=== PATIENT | female | born 1955 | race Caucasian/White ===

== ENCOUNTER → 2017-06-03 | Outpatient (CLI) | payer OTHER ==
--- NOTE | 2017-06-05 06:53 | MM ---
Reason for exam: screening (asymptomatic). Last mammogram was performed 3 years and 5 months ago. History: Patient is postmenopausal. Physical Findings: A clinical breast exam by your physician is recommended on an annual basis and results should be correlated with mammographic findings. MG 3D Screening Mammo W/Cad Bilateral CC and MLO view(s) were taken. Prior study comparison: December 29, 2013, bilateral MG screening mammo w CAD. January 16, 2011, bilateral digital screening mammo w/CAD. The breast tissue is extremely dense which could obscure a lesion on mammography. Stable benign calcifications. There is chronic nodularity bilaterally. There is no dominant lesion. No significant changes when compared with prior studies. ASSESSMENT: Benign, BI-RAD 2 RECOMMENDATION: Routine screening mammogram of both breasts in 1 year.
== END | disposition home or self-care (01) ==
LOC: RADMAMWWP 09:58
PROVIDERS: ATTEND Obstetrics & Gynecology
DX: Z12.31 Encounter for screening mammogram for malignant neoplasm of breast (principal)
CPT/HCPCS: 77063; 77067

== ENCOUNTER → 2021-03-21 | Outpatient (CLI) | payer OTHER ==
--- NOTE | 2021-03-22 15:03 | MM ---
Reason for exam: screening (asymptomatic). Last mammogram was performed 3 years and 10 months ago. History: Patient is postmenopausal. Physical Findings: A clinical breast exam by your physician is recommended on an annual basis and results should be correlated with mammographic findings. MG 3D Screening Mammo W/Cad Bilateral CC and MLO view(s) were taken. Prior study comparison: June 03, 2017, bilateral MG 3d screening mammo w/cad. December 29, 2013, bilateral MG screening mammo w CAD. The breast tissue is heterogeneously dense. This may lower the sensitivity of mammography. Benign appearing bilateral calcifications. No significant changes when compared with prior studies. ASSESSMENT: Benign, BI-RAD 2 RECOMMENDATION: Routine screening mammogram of both breasts in 1 year.
== END | disposition home or self-care (01) ==
LOC: RADMAMWWP 11:04
PROVIDERS: ATTEND Obstetrics & Gynecology
DX: Z12.31 Encounter for screening mammogram for malignant neoplasm of breast (principal); Z78.0 Asymptomatic menopausal state
CPT/HCPCS: 77063; 77067

== ENCOUNTER → 2023-03-26 | Outpatient (CLI) | payer MEDICARE ==
--- NOTE | 2023-03-30 06:34 | MM ---
Reason for Exam: Screening (asymptomatic). Last mammogram was performed 2 year(s) and 0 month(s) ago. Patient History: Menarche at age 14. First Full-Term at age 23. Postmenopausal. Risk Values: Bri 5 year model risk: 1.5%. NCI Lifetime model risk: 5.4%. Prior Study Comparison: 12/29/2013 Bilateral Screening Mammogram, [facility]. 06/03/2017 Bilateral Screening Mammogram, [facility]. 03/21/2021 Bilateral Screening Mammogram, [facility]. Tissue Density: The breast tissue is heterogeneously dense. This may lower the sensitivity of mammography. Findings: Analyzed By CAD. There is no suspicious group of microcalcifications or new suspicious mass in either breast. Overall Assessment: Negative, BI-RAD 1 Management: Screening Mammogram of both breasts in 1 year. . Patient should continue monthly self-breast exams. A clinical breast exam by your physician is recommended on an annual basis. This exam should not preclude additional follow-up of suspicious palpable abnormalities. Note on Bri scores and lifetime risk: 1. A Bri score greater than 3% is considered moderate risk. If this is the case, consider specialist referral to assess eligibility for a risk reducing agent. 2. If overall lifetime risk for the development of breast cancer is 20% or higher, the patient may qualify for future screening with alternating mammogram and breast MRI. Electronically signed and approved by: Dayton Mejia M.D. Radiologist
== END | disposition home or self-care (01) ==
LOC: RADMAMWWP 11:16
PROVIDERS: ATTEND Obstetrics & Gynecology
DX: Z12.31 Encounter for screening mammogram for malignant neoplasm of breast (principal); Z78.0 Asymptomatic menopausal state
CPT/HCPCS: 77063; 77067

== ENCOUNTER 2024-01-25 08:49 | Day surgery (SDC) | payer MEDICARE ==
[2024-01-25] MEDS: IV FLUID CONTINUATION 1,000 ML IV ONE ×2 (09:22→11:38)
[2024-01-25] MEDS ORDERED: MIDAZOLAM 2 MG/2 ML VIAL IV PRN (09:22)
[2024-01-25] MEDS ORDERED: HYDROmorphone 0.5 MG/0.5 ML SYRINGE IVP PRN (09:22)
[2024-01-25] MEDS: ONDANSETRON 4 MG/2 ML VIAL IVP ONE (09:56)
[2024-01-25] MEDS: DEXAMETHASONE SOD PHOSPHATE 4 MG/ML 1 ML VIAL IV ONE (09:56)
[2024-01-25] MEDS: HEPARIN SODIUM,PORCINE 5,000 UNIT/ML 1 ML VIAL SQ PRN (09:56)
[2024-01-25] MEDS: diphenhydrAMINE 50 MG/ML 1 ML VIAL IVP STA (09:57)
[2024-01-25] MEDS: ACETAMINOPHEN TAB 500 MG TAB PO PRN (09:57)
--- NOTE | 2024-01-25 10:05 | P.GSHP ---
History of Present Illness H&P Date: 01/25/24 Chief Complaint: Chronic cholecystitis 68-year-old female here for cholecystectomy. Patient describes a several year history of intermittent attacks of right upper quadrant pain. In the distant past was told she had sludge and then more recently was told she had small gall stones. Patient has not been seen since last summer. At that time patient was considering going to [facility] since she was trying to avoid surgery here at [facility]. Apparently she never followed through with that appointment. Patient states she is now comfortable with the idea of having surgery here. Has had recent episodes of right upper quadrant pain. These are short lasting. Last episode about 1 month ago or so. No recent changes in the color of her skin urine or stool. Patient has a history of previous pulmonary embolism. Underwent coagulation workup which she states was normal. She was on Xarelto for 6 months. Patient has had procedures and has flown on airplanes since then without any issues. Past Medical History Past Medical History: Pulmonary Embolus (PE) Additional Past Medical History / Comment(s): nephrotic syndrome- resolved. PE after sclera vein therapy ( injections). knee pain. gall bladder issues. IBS History of Any Multi-Drug Resistant Organisms: None Reported Past Surgical History: No Surgical Hx Reported Additional Past Surgical History / Comment(s): scope to left , rt knee steroid injection. colonoscopy Past Anesthesia/Blood Transfusion Reactions: No Reported Reaction Smoking Status: Never smoker - Past Family History Mother Family Medical History: No Reported History Father Family Medical History: Myocardial Infarction (NM) Additional Family Medical History / Comment(s): @ 62yrs Medications and Allergies Home Medications Medication Instructions Recorded Confirmed Type No Known Home Medications 01/20/24 01/25/24 History Allergies Allergy/AdvReac Type Severity Reaction Status Date / Time No Known Allergies Allergy Verified 01/25/24 09:22 Surgical - Exam Vital Signs Temp Pulse Resp BP Pulse Ox 98.2 F 72 15 136/74 97 01/25/24 09:16 01/25/24 09:16 01/25/24 09:16 01/25/24 09:16 01/25/24 09:16 Physical exam: General: Well-developed, well-nourished HEENT: Normocephalic, sclerae nonicteric Abdomen: Nontender, nondistended Extremities: No edema Neuro: Alert and oriented Assessment and Plan (1) Chronic cholecystitis Narrative/Plan: Will proceed with laparoscopic cholecystectomy, possible open at this time. Risks of bleeding, infection, bile leak, bile duct injury, retained common bile duct stone, trocar injury, conversion to an open procedure, hernia, anesthesia related complications were reviewed. The patient understands and wishes to proceed. Patient and I discussed the options of sending her home on a nticoagulation in the form of Lovenox subcu. Patient states she would like to avoid that unless it is absolutely necessary. Patient will be sent home with ALISA goodson and will focus on increased ambulation over the next several days. Current Visit: Yes Status: Acute Code(s): K81.1 - CHRONIC CHOLECYSTITIS S NOMED Code(s): 00822714
[2024-01-25] MEDS ORDERED: PROPOFOL 10 MG/ML 20 ML VIAL IV ONE (10:09)
[2024-01-25] MEDS ORDERED: SUCCINYLCHOLINE CHLORIDE 200 MG/10 ML VIAL IV ONE (10:09)
[2024-01-25] MEDS ORDERED: ePHEDrine 50 MG/ML 1 ML VIAL ONE (10:09)
[2024-01-25] MEDS ORDERED: ROCURONIUM 10 MG/ML (5 ML VIAL) IV ONE (10:09)
[2024-01-25] MEDS ORDERED: MIDAZOLAM 2 MG/2 ML VIAL ONE (10:09)
[2024-01-25] MEDS ORDERED: PHENYLEPHRINE-0.9% NACL SYG 1,000 MCG/10 ML SYRINGE ONE (10:09)
[2024-01-25] MEDS ORDERED: LIDOCAINE 1% INJ 10MG/ML (20 ML MDV) ONE (10:09)
[2024-01-25] MEDS ORDERED: GLYCOPYRROLATE 0.2 MG/ML 2 ML VIAL ONE (10:09)
[2024-01-25] MEDS ORDERED: fentaNYL (PF) 50 MCG/ML 2 ML AMP ONE (10:09)
[2024-01-25] MEDS ORDERED: NEOSTIGMINE 1 MG/ML 10 ML VIAL ONE (10:09)
[2024-01-25] MEDS: BUPIVACAINE (PF) 0.25% 30 ML VIAL SQ ONE ×2 (10:34)
--- NOTE | 2024-01-25 11:21 | P.OP ---
Date of Procedure: 01/25/24 Procedure(s) Performed: PREOPERATIVE DIAGNOSIS: Chronic cholecystitis POSTOPERATIVE DIAGNOSIS: Same PROCEDURE: Laparoscopic cholecystectomy SURGEON: Damien EBL: Minimal see anesthesia record ANESTHESIA: Gen. COMPLICATIONS: None OPERATIVE PROCEDURE: The patient was brought and placed on the operating room table in the supine position. The patient was placed under general anesthesia at that time. The abdomen was prepped and draped in the usual sterile fashion. The patient had a small umbilical hernia present inferior to the umbilicus. For that reason a small curvilinear supraumbilical incision was made. The fascia was grasped with the Nicolás forceps. The fascia was retracted anteriorly. The Veress needle was advanced into the peritoneal cavity. The saline drop test was normal. Insufflation took place up to 15 mmHg. A 5 mm optical trocar was advanced and the peritoneal cavity. 2 additional 5 mm trochars were placed in the right upper quadrant under direct visualization. A 12 mm trocar was advanced into the epigastric incision site. The gallbladder was retracted superiorly and laterally. The peritoneum overlying the infundibulum was bluntly dissected. The patient's cystic duct was visualized. The junction between the cystic duct common and hepatic duct was identified. The critical view of safety was achieved after blunt dissection. The cystic duct was then divided after placement of 3 12 mm clips on the patient's side and one on the specimen side. The cystic artery was identified and clipped as well. A small vessel was seen along the gallbladder fossa and clipped as well. The gallbladder was then removed from the liver bed using electrocautery. The gallbladder was then removed from the epigastric trocar site with an Endo Catch bag. The gallbladder fossa was irrigated with saline. There was no evidence of any bleeding or biliary drainage seen. The fascia at the 12 millimeter site was closed using a Igor-Deondre 0 Vicryl stitch. The trochars were then removed. The skin at all 4 sites was closed using a 4-0 Monocryl stitch. Skin glue was utilized on the incision sites. At the end of this procedure the sponge and needle counts were correct. DISPOSITION: Stable to the recovery room
[2024-01-25 11:26] VITALS: TEMP 97.8
[2024-01-25] MEDS: LACTATED RINGERS 1,000 ML IV SCH (11:39)
[2024-01-25 12:57] VITALS: RESP 16
[2024-01-25 14:13] VITALS: BP 115/65; PULSE 67
[2024-01-25] MEDS ORDERED: IBUPROFEN 600 MG TAB PO SCH (14:30)
[2024-01-25] MEDS ORDERED: ACETAMINOPHEN TAB 325 MG TAB PO SCH (18:00)
== END 2024-01-25 14:16 | disposition home or self-care (01) ==
LOC: OR 08:49
PROVIDERS: ATTEND Surgery
DX: K80.10 Calculus of gallbladder with chronic cholecystitis without obstruction (principal); K58.9 Irritable bowel syndrome, unspecified; Z86.711 Personal history of pulmonary embolism; Z79.899 Other long term (current) drug therapy; Z79.01 Long term (current) use of anticoagulants
CPT/HCPCS: 88304

== ENCOUNTER → 2024-05-26 | Outpatient (CLI) | payer MEDICARE ==
--- NOTE | 2024-05-30 07:42 | BD ---
EXAMINATION TYPE: Axial Bone Density DATE OF EXAM: 05/26/2024 CLINICAL HISTORY: 68 years old Female. ICD-10 CODE: N95.1 MENOPAUSAL AND FEMALE CLIMACTERIC STATES , Additional History: Height: 67 Weight: 138 FRAX RISK QUESTIONS: History of Fracture in Adulthood: yes Secondary Osteoporosis: 3. Menopause before 45: at 46 RISK FACTORS HISTORY OF: MEDICATIONS: EXAM MEASUREMENTS: Bone mineral densitometry was performed using the [employer] System. Bone mineral density as measured about the Lumbar spine is: ----- L1-L4(G/cm2): 0.882 T Score Values are as follows: ----- L1: -3.0 ----- L2: -3.1 ----- L3: -2.2 ----- L4: -1.9 ----- L1-L4: -2.5 Z Score Values are as follows: ----- L1: -1.3 ----- L2: -1.4 ----- L3: -0.5 ----- L4: -0.2 ----- L1-L4: -0.8 Bone mineral density has: Decreased -17.3% since study of: 03-06-06 Bone mineral density about the R hip (g/cm2): 0.702 Bone mineral density about the L hip (g/cm2): 0.746 T Score values are as follows: -----R Neck: -2.2 -----L Neck: -2.0 -----R Total: -2.4 -----L Total: -2.1 Z Score values are as follows: -----R Neck: -0.6 -----L Neck: -0.4 -----R Total: -1.0 -----L Total: -0.7 Bone mineral density has: Decreased -18.6% since study of: 03-06-06 FRAX%s: The graph provided illustrates a 11.5% chance for a major osteoporotic fx and a 2.3% chance f or the hips probability for fx in 10 years time. IMPRESSION: Osteopenia (T Score between -2.5 and -1). There is slightly increased risk of fracture and the patient may be considered for treatment. Re-Screen 2-5 years. NOTE: T-SCORE=SD OF THE YOUNG ADULT MEAN. [facility], , 05/30/2024 7:39 AM
== END | disposition home or self-care (01) ==
LOC: RADBDWWP 11:26
PROVIDERS: ATTEND Obstetrics & Gynecology
DX: M85.89 Other specified disorders of bone density and structure, multiple sites (principal); N95.1 Menopausal and female climacteric states
CPT/HCPCS: 77080